=== PATIENT | male | born 1960 | race Caucasian/White ===

== ENCOUNTER → 2024-10-08 06:16 | Day surgery (SDC) | payer BC, SELFPAY | LOC: GI 06:16 | PROVIDERS: ATTENDING PHYSICIAN Specialist; FAMILY PHYSICIAN Family Medicine | DX: K20.0 Eosinophilic esophagitis (principal); K22.89 Other specified disease of esophagus; K31.89 Other diseases of stomach and duodenum; R13.10 Dysphagia, unspecified | CPT/HCPCS: 43239; 88305; 88342 ==